=== PATIENT | female | born 1955 | race African-American/Black ===

== ENCOUNTER 2024-10-12 06:55 | Day surgery (SDC) | payer OTHER ==
[2024-10-11 15:00] LABS: Absolute Eosinophils 0.1 K/uL (0-0.5); Absolute Lymphocytes (CBC) 2.4 K/uL (0.7-4.9); Absolute Monocytes 0.8 K/uL (0.1-1.3); Absolute Neutrophil 5.4 K/uL (1.8-8.0); Basophils % 0.3 % (0-1.3); Eosinophils % 1.6 % (0-4.4); Hematocrit 36.1 % (36.0-45.0); Lymphocytes % 27.9 % (15.3-44.8); MCH 27.1 pg (27.0-35.0); MCHC 33.2 g/dL (32.0-36.0); MCV 81.5 fL (80-100); MPV 8.9 fL (7.6-11.3); Monocytes % 8.6 % (3.3-12.3); Neutrophils % 61.6 % (41.7-73.7); Platelets 218 thou/uL (152-406); RBC Red Blood Cell Count 4.42 M/uL (3.86-4.86); Red Cell Distribution Width 16.2 % (12.1-15.2)
[2024-10-11 15:03] LABS: PT Prothrombin Time 13.1 SECONDS (10-13.0); PTT, Activated Partial Thromb 29.6 SECONDS (27.2-37.4); Protime INR 1.16
[2024-10-11 15:09] LABS: Anion Gap 7.2 mEq/L (5.0-15.0); Potassium 4.2 mEq/L (3.5-5.1)
[2024-10-12] MEDS: Ringers Lactate 1,000 ML IV ONE (08:00)
[2024-10-12] MEDS ORDERED: propofoL 200 MG/20 ML VIAL IV ONE ×2 (09:03→09:04)
[2024-10-12] MEDS ORDERED: SUCCINYLCHOLINE 20 MG/ML (10 ML) IV ONE (09:03)
[2024-10-12] MEDS ORDERED: LIDOCAINE 1% MPF 5 ML VIAL ONE (09:04)
[2024-10-12] MEDS ORDERED: GLYCOPYRROLATE 0.2 MG/ML SYR ONE (10:15)
[2024-10-12 11:47] VITALS: BP 126/57; TEMP 97.3; O2SAT 99
== END 2024-10-12 10:50 | disposition home or self-care (01) ==
LOC: OR 06:55
PROVIDERS: ATTEND Internal Medicine Gastroenterology
PROC: 0DB68ZX Excision of Stomach, Via Natural or Artificial Opening Endoscopic, Diagnostic (ICD-10-PCS; principal; 2024-10-12 08:00)
PROC: 0DJD8ZZ Inspection of Lower Intestinal Tract, Via Natural or Artificial Opening Endoscopic (ICD-10-PCS; 2024-10-12 08:00)
DX: R14.0 Abdominal distension (gaseous) (principal); B96.81 Helicobacter pylori [H. pylori] as the cause of diseases classified elsewhere; A04.8 Other specified bacterial intestinal infections; K29.50 Unspecified chronic gastritis without bleeding; K30 Functional dyspepsia; R14.3 Flatulence; D50.9 Iron deficiency anemia, unspecified; R14.2 Eructation; D62 Acute posthemorrhagic anemia; K21.00 Gastro-esophageal reflux disease with esophagitis, without bleeding; K64.8 Other hemorrhoids; Z12.11 Encounter for screening for malignant neoplasm of colon; Z79.01 Long term (current) use of anticoagulants; Z83.710 Family history of adenomatous and serrated polyps
CPT/HCPCS: 36415; 80048; 85025; 85610; 85730; 88305; 88312; 93005; J2003; J2704; J7120